=== PATIENT | female | born 1985 | race Caucasian/White ===

== ENCOUNTER 2017-01-19 04:53 | Inpatient (IN) ==
[2017-01-17 12:13] LABS: MANUAL DIFF NEEDED? NO
[2017-01-17 12:23] LABS: HEMOGLOBIN 11.2 g/dL (12.0-16.0); RBC 3.65 XMIL (4.2-5.4)
[2017-01-17 12:24] LABS: BASO% 0.1 % (0.0-0.8); EOS# 0.24 X1000 (0.0-0.7); EOS% 2.7 % (0.0-10.0); HEMATOCRIT 34.6 % (37.0-47.0); IMM GRAN% 1.1 % (0.0-0.5); LYMPH# 1.28 X1000 (1.2-3.4); LYMPH% 14.3 % (20.5-51.1); MCH 30.7 PG (27-31); MCHC 32.4 g/dL (33-37); MCV 94.8 FL (81-99); MONO# 1.01 X1000 (0.11-0.59); MONO% 11.3 % (1.7-9.3); MPV 9.5 FL (7.4-10.4); NEUT% 70.5 % (42.2-75.2); PLT 228 X1000 (130-400)
[2017-01-19] MEDS ORDERED: LR 1,000 ML IV SCH (04:58)
[2017-01-19] MEDS ORDERED: KEFZOL 1 GM/D5W 1 GM/50 ML IVPB IV PRN (04:58)
[2017-01-19] MEDS ORDERED: PEPCID IV ONE (05:00)
[2017-01-19] MEDS ORDERED: SODIUM CHLORIDE 0.9% INJ ONE (05:00)
[2017-01-19] MEDS ORDERED: BICITRA PO ONE (05:00)
[2017-01-19 05:52] LABS: MANUAL DIFF NEEDED? NO
[2017-01-19 05:53] LABS: URINE MICROSCOPIC NEEDED? NO; URINE SOURCE VOIDED
[2017-01-19 05:58] LABS: BILIRUBIN URINE NEGATIVE (NEGATIVE); BLOOD URINE NEGATIVE (NEGATIVE); CLARITY CLEAR (CLEAR); COLOR YELLOW; GLUCOSE URINE NEGATIVE (NEGATIVE); LEUKOCYTES URINE NEGATIVE (NEGATIVE); NITRITE URINE NEGATIVE (NEGATIVE); PROTEIN URINE NEGATIVE (NEGATIVE); SP GRAVITY URINE 1.005; UR AMPHETAMINES QUAL NONE DETECTED (NONE DETECT); UR BARBITUATES QUAL NONE DETECTED (NONE DETECT); UR BENZODIAZEPIN QUAL NONE DETECTED (NONE DETECT); UR CANNABINOIDS QUAL NONE DETECTED (NONE DETECT); UR COCAINE QUAL NONE DETECTED (NONE DETECT); UR MDMA QUAL NONE DETECTED (NONE DETECT); UR METHADONE QUAL NONE DETECTED (NONE DETECT); UR METHAMPHETAMINE QUAL NONE DETECTED (NONE DETECT); UR OPIATES QUAL NONE DETECTED (NONE DETECT); UR OXYCODONE QUAL NONE DETECTED (NONE DETECT); UR PCP QUAL NONE DETECTED (NONE DETECT); UR TCA QUAL NONE DETECTED (NONE DETECT); UROBILINOGEN URINE NORMAL
[2017-01-19 06:03] LABS: BASO% 0.2 % (0.0-0.8); EOS# 0.14 X1000 (0.0-0.7); EOS% 1.5 % (0.0-10.0); HEMATOCRIT 34.7 % (37.0-47.0); HEMOGLOBIN 11.3 g/dL (12.0-16.0); IMM GRAN# 0.05 X1000 (0.0-0.04); IMM GRAN% 0.5 % (0.0-0.5); LYMPH# 2.06 X1000 (1.2-3.4); LYMPH% 22.6 % (20.5-51.1); MCH 30.6 PG (27-31); MCHC 32.6 g/dL (33-37); MONO# 0.99 X1000 (0.11-0.59); MONO% 10.9 % (1.7-9.3); MPV 9.9 FL (7.4-10.4); NEUT% 64.3 % (42.2-75.2); PLT 240 X1000 (130-400); RBC 3.69 XMIL (4.2-5.4)
[2017-01-19] MEDS ORDERED: DURAMORPH ONE (06:38)
[2017-01-19] MEDS ORDERED: PITOCIN IM PRN (06:43)
[2017-01-19] MEDS ORDERED: PHENERGAN IM PRN (06:43)
[2017-01-19] MEDS ORDERED: BOOSTRIX VACCINE IM ONE (06:43)
[2017-01-19] MEDS ORDERED: DEMEROL PO PRN ×2 (06:43)
[2017-01-19] MEDS ORDERED: DEMEROL IM PRN (06:43)
[2017-01-19] MEDS ORDERED: HYDROXYZINE IM PRN (06:43)
[2017-01-19] MEDS ORDERED: PITOCIN 20 UNITS/LR 20 UNITS/1,000 ML IV.SOLN IV ONE (06:43)
[2017-01-19] MEDS ORDERED: AMBIEN PO PRN (06:43)
[2017-01-19] MEDS ORDERED: CYTOTEC PO PRN (06:43)
[2017-01-19] MEDS ORDERED: M-M-R II VACCINE SUBQ ONE (06:43)
[2017-01-19] MEDS ORDERED: PERCOCET-5 PO PRN (06:43)
[2017-01-19] MEDS ORDERED: MYLICON PO PRN (06:43)
[2017-01-19] MEDS ORDERED: DULCOLAX PR PRN (06:43)
[2017-01-19] MEDS ORDERED: HYDROXYZINE PO PRN (06:43)
[2017-01-19] MEDS ORDERED: PITOCIN 10 UNITS/LR 10 UNIT/1,000 ML IV.SOLN IV SCH ×2 (06:45→16:59)
[2017-01-19] MEDS ORDERED: PITOCIN ONE (07:19)
[2017-01-19] MEDS ORDERED: ZOFRAN ONE (07:19)
[2017-01-19] MEDS ORDERED: PITOCIN 20 UNITS/LR 40 UNITS/2,000 ML IV.SOLN ONE (07:19)
--- NOTE | 2017-01-19 08:10 | OPERATIVE NOTE ---
PROCEDURE DATE : 01/19/2017 SURGEON: Félix Angelo MD. PHOTOCOPYING MACHINE OPERATOR: Shae Monson MD. PREOPERATIVE DIAGNOSES: 1. Term intrauterine . 2. Previous section, desires repeat. POSTOPERATIVE DIAGNOSES: 1. Term intrauterine . 2. Previous section, desires repeat. PROCEDURE: Repeat low transverse section. FINDINGS: The patient had a male born, weight 10 pounds, 15 ounces. Apgars were 9 and 10. DESCRIPTION OF OPERATION: The patient was taken to the operating room and given Ancef IV. She underwent spinal anesthesia by Dr. Jett, was prepped and draped in sterile fashion, Burciaga catheter in the bladder, pump hose and stockings were placed. We made a Pfannenstiel skin incision and sharply dissected down to fascia. The fascia was dissected off the rectus muscle. The peritoneum was entered into and dissected down to create the bladder flap. Low transverse incision was made. The roll up guider operator's hand was introduced, and the infant was delivered using fundal pressure. The did have clear fluid upon entering the amniotic sac. The infant is doing well at this time. Cord blood was obtained. Placenta was removed. The uterus was cleaned with a clean lap. The incision was closed with #1 chromic in interlocking fashion. The uterus was put back in its anatomic position. Good hemostasis was noted throughout. Irrigation done. Rectus muscle was closed with 0 chromic suture. Hemostasis was maintained with the Bovie. Fascia was closed with #1 Vicryl. Vicryl 3-0 was used subcuticularly, and the skin incision was closed with 4-0 Biosyn. Estimated blood loss 400 mL. Mother and infant are doing well. cc: Félix Angelo MD
[2017-01-19] MEDS ORDERED: ZOFRAN ODT PO PRN (08:20)
[2017-01-19] MEDS ORDERED: NARCAN INJ PRN (08:20)
[2017-01-19] MEDS ORDERED: BENADRYL IV PRN (08:20)
[2017-01-19] MEDS ORDERED: MORPHINE IV PRN (08:20)
[2017-01-19] MEDS ORDERED: ZOFRAN IV PRN ×2 (08:20)
[2017-01-19] MEDS: MYLICON PO SCH ×4 (10:27→23:30)
[2017-01-19] MEDS: TORADOL IV PRN ×2 (15:58→23:29)
[2017-01-19] MEDS: PERICOLACE PO SCH (23:30)
[2017-01-20] MEDS: TORADOL IV PRN (05:45)
[2017-01-20 05:53] LABS: HEMATOCRIT 32.2 % (37.0-47.0); HEMOGLOBIN 10.4 g/dL (12.0-16.0); MCH 30.9 PG (27-31); MCHC 32.3 g/dL (33-37); MCV 95.5 FL (81-99); MPV 10.1 FL (7.4-10.4); RBC 3.37 XMIL (4.2-5.4)
[2017-01-20] MEDS ORDERED: LR 1,000 ML IV SCH (06:43)
[2017-01-20] MEDS: PERCOCET-10 PO PRN ×4 (09:08→20:46)
[2017-01-20] MEDS: MYLICON PO SCH ×4 (09:08→20:46)
[2017-01-20] MEDS: MOTRIN PO PRN ×2 (12:48→20:46)
[2017-01-20] MEDS: PERICOLACE PO SCH (20:46)
[2017-01-21] MEDS: PERCOCET-10 PO PRN ×3 (00:04→08:34)
[2017-01-21] MEDS: MYLICON PO SCH (08:33)
[2017-01-21] MEDS: MOTRIN PO PRN (08:34)
[2017-01-21 09:12] VITALS: BP 127/73
--- NOTE | 2017-01-22 05:15 | DISCHARGE SUMMARY ---
ADMISSION DATE: 01/19/2017 DISCHARGE DATE: 01/21/2017 ADMITTING DIAGNOSES: 1. Term . 2. Previous section, requesting repeat section. PRINCIPAL DIAGNOSES: 1. Term . 2. Previous section, requesting repeat section. PRINCIPAL PROCEDURE: Repeat section. SUMMARY: Jo Ann Dalal is a 32-year-old, 2, para 1-0-0-1, at term gestation. Her first ended in a section, and she requested a repeat . She was therefore admitted to the hospital by Dr. Angelo, who performed a repeat low transverse C- section, delivering a 10 pound 15 ounce male infant, with Apgars of 9 at 1 minute and 10 at 5 minutes. There were no intraoperative complications. Following delivery, the patient did well. She remained afebrile and all vital signs were stable. Her admission hemoglobin and hematocrit 11.3/34.7, discharge hemoglobin and hematocrit being 10.4/32.2. On the day of discharge, cardiac and pulmonary examinations normal. Bowel and bladder functions were normal. Incision was clean and dry. She was having scant vaginal bleeding. Mrs. Dalal is being discharged today, and will be seen back in the office in 1 week. Routine discharge instructions, activity limitations, and precautions were discussed. She will continue vitamins. She is given prescriptions for Motrin and Percocet 10, #30, for postoperative pain. cc: MD Félix Huggins MD
== END 2017-01-21 11:30 | disposition home or self-care (01) ==
LOC: P.LD 04:53 → P.WC 01-20 05:30
PROVIDERS: ADMIT Obstetrics & Gynecology; ATTEND Obstetrics & Gynecology